=== PATIENT | female | born 1970 | race Caucasian/White ===

== ENCOUNTER 2022-03-07 17:42 | Emergency (ER) | payer OTHER, SELFPAY ==
--- NOTE | ~2022-03-07 | CT_ITS ---
EXAMINATION: CTA chest PE protocol DATE: 03/07/2022 20:50 INDICATION: Right-sided chest pain, elevated D-dimer TECHNIQUE: Computed tomography angiography (CTA) of the chest was performed with 100 mL Omnipaque-350 intravenous contrast timed to evaluate the pulmonary arteries. Coronal maximum intensity projection 3D-reconstructions were created by the technologist. The dose-length product (DLP) was 316.48 mGy-cm. Automated exposure control and iterative reconstruction technique were employed. COMPARISON: X-ray chest, same date. FINDINGS: Study quality: Adequate. Pulmonary arteries: No pulmonary emboli detected. Thoracic aorta: Normal. Lung parenchyma and airways: Minimal bibasilar atelectasis and scarring. Thoracic inlet, axillae and chest wall: Asymmetric soft tissue density in the upper inner quadrant of the left breast measuring 1.6 cm. Mediastinum: Normal. Heart and pericardium: Normal. Coronary artery calcifications: Absent. Pleura: Unremarkable. Upper abdomen: No significant finding. Bones: No acute osseous finding. IMPRESSION: No CT evidence of acute pulmonary embolus. Asymmetric nodular soft tissue density in the upper inner quadrant of the left breast. Recommend outpatient referral for diagnostic mammography and breast ultr asound. Reviewed, dictated and finalized at location K. IMPRESSION: No CT evidence of acute pulmonary embolus. Asymmetric nodular soft tissue densi ty in the upper inner quadrant of the left breast. Recommend outpatient referra l for diagnostic mammography and breast ultrasound.
--- NOTE | ~2022-03-07 | XR_ITS ---
EXAMINATION: XR chest 1V portable Exam Date/Time: 03/07/2022 19:05 CDT HISTORY: sob Comparison: 10/03/2017. RESULT: Lines, tubes, and devices: None. Lungs and pleura: Clear. Cardiomediastinal silhouette: Stable cardiomediastinal silhouette. Other: No acute osseous or upper abdominal finding. IMPRESSION: No acute cardiopulmonary process. Reviewed, dictated and finalized at location K.
[2022-03-07 17:47] VITALS: BP 208/115; PULSE 80; RESP 16; TEMP 36.3; O2SAT 98
--- NOTE | 2022-03-07 17:52 | ECG_ITS ---
Measurements Intervals [place] Rate: 73 P: 59 MT: 158 QRS: 22 QRSD: 98 T: 46 QT: 375 QTc: 415 Interpretive Statements SINUS RHYTHM INCOMPLETE RIGHT BUNDLE BRANCH BLOCK BORDERLINE ECG Electronically Signed On 03-07-2022 20:39:45 CDT by Chintan Jacobson D.O.
[2022-03-07 18:13] LABS: Basophils Absolute Auto 0.1 K/mm3 (0.0-0.1); Basophils Percent Auto 0.8 % (0.2-1.2); Eosinophils Absolute Auto 0.2 K/mm3 (0-0.3); Eosinophils Percent Auto 2.1 % (0-4.4); Hematocrit 46.4 % (37.0-47.0); Immature Granulocyte Absolute 0.04 K/mm3 (0.00-0.031); Immature Granulocyte Percent A 0.4 % (0-0.5); Lymphocytes Absolute Auto 2.49 K/mm3 (0.9-3.2); Lymphocytes Percent Auto 25.4 % (18.3-44.2); Mean Corpuscular HGB Conc 34.5 g/dl (32-36); Mean Corpuscular Hemoglobin 34.6 pg (26-34); Mean Corpuscular Volume 100.2 fl (80-100); Mean Platelet Volume 9.5 fl (7.4-10.4); Monocytes Absolute Auto 0.5 K/mm3 (0.1-0.6); Monocytes Percent Auto 5.2 % (2.6-8.5); Neutrophils Absolute Auto 6.5 K/mm3 (1.3-6.7); Neutrophils Percent Auto 66.1 % (45.5-73.1); Platelet Count Result 363 k/mm3 (150-375); Red Blood Count 4.63 M/mm3 (4.2-5.4); Red Cell Distribution Width 13.7 % (11.5-14.5); White Blood Count 9.8 K/mm3 (4.5-10.0)
[2022-03-07 18:23] LABS: Alanine Aminotransferase 35 U/L (6-35); Albumin Level 4.4 g/dL (3.5-5.1); Alkaline Phosphatase 116 U/L (38-126); Anion Gap 6 mmol/L (8-16); Aspartate Amino Transferase 35 U/L (14-36); Bilirubin,Total 0.3 mg/dL (0.2-1.3); Blood Urea Nitrogen 14 mg/dL (7-17); Calcium 8.9 mg/dL (8.4-10.2); Carbon Dioxide 24 mmol/L (22-30); Chloride 105 mmol/L (98-107); Estimated CRCL calculation 69 ml/min; Estimated Glomerular Filt Rate > 60; Glucose 114 mg/dL (65-110); Potassium 3.7 mmol/L (3.4-5.0); Sodium 135 mmol/L (137-145)
--- NOTE | 2022-03-07 19:12 | ED.GENADULT ---
HPI - General Adult General Chief complaint: Shortness of Breath/Dyspnea Stated complaint: RUQ pain Time Seen by Provider: 03/07/22 18:54 History of Present Illness HPI narrative: 51-year-old female presenting to the emergency department for evaluation of right sided rib pain. Patient states over the course of the last month she has had right-sided rib pain that she describes as right lower rib pain that does radiate up to her right shoulder. Patient states that it is worsened with deep inspiration. While the pain did start approximately 1 month ago she states over the last few days it has become more persistent. Patient reports approximately month ago she did have a viral illness with significant cough but has recovered from that. Patient denies any current chest pain. Patient denies any associated shortness of breath. Patient denies any prior history of gallbladder disease. Patient denies any prior history of ND, PE or DVT. Related Data Home Medications Medication Instructions Recorded Confirmed conjugated estrogens 25 mg 25 mg IM ONCE 09/29/19 solution for injection (Premarin) fluoxetine 20 mg capsule 20 mg PO DAILY 09/29/19 levothyroxine 88 mcg tablet 88 mcg PO DAILY 09/29/19 Allergies Allergy/AdvReac Type Severity Reaction Status Date / Time No Known Allergies Allergy Mild Unverified 07/21/03 13:04 Review of Systems Review of Systems: CONSTITUTIONAL: Denies fever, chills, or sweats. EYES: Denies visual changes, redness, or discharge. ENT: Denies rhinorrhea, congestion, sore throat, or otalgia. CARDIOVASCULAR: See HPI RESPIRATORY: See HPI GASTROINTESTINAL: Denies abdominal pain, nausea, vomiting, or diarrhea. GENITOURINARY: Denies dysuria or hematuria. SKIN: Denies rash or itching. MUSCULOSKELETAL: Denies back pain, joint pain, or myalgia. NEUROLOGIC: Denies headache, numbness, or weakness. [facility] Past Medical History Medical History (Updated 03/07/22 @ 22:20 by Quinn Granger MD) Essential hypertension Thyroid disease Surgical History Surgical History (Updated 09/29/19 @ 09:50 by Bettye Romo CMA) History of History of hysterectomy Family History Family History (Updated 12/24/18 @ 09:12 by DOCTOR UNKNOWN) Father Diabetes mellitus Carcinoma of colon Family history of primary malignant neoplasm of liver Family history of congestive heart failure Mother Family history of renal failure, Onset Age: 45 Other Family history of sleep apnea Social History Social History Smoking status: Former smoker Exam Narrative: APPEARANCE: Well appearing, no pain, no distress, well-nourished. HEAD: normocephalic, atraumatic. EYES: PERRLA/EOMI, conjunctivae clear. NOSE: Normal no drainage THROAT: Pharynx clear, no exudate. NECK: Supple. No adenopathy, no masses. RESPIRATORY: Airway patent, respirations nonlabored. Clear to auscultation bilaterally, no rales, rhonchi, wheezing. CARDIOVASCULAR: Regular rate and rhythm without murmurs rubs or gallops. ABDOMINAL: Soft, nontender, nondistended, normal bowel sounds MUSCULOSKELETAL: Moves all extremities. Strength/ROM intact, No edema, No calf tenderness. Some right lateral chest wall tenderness to palpation. No rashes. NEURO: Alert. Cranial nerves II through XII intact. Good gait. Good coordination SKIN: Warm, dry. Normal Color PSYCHIATRIC: Patient does have a nervous affect. Course Course Emergency Course: Patient stated that she was possibly taking her hydrochlorothiazide and losartan but had not been taking them. Patient was hypertensive in the emergency permit but did feel improved with treatment. Patient had a negative CTA. Patient had negative serial troponins. Patient reports the pain is constant but can be worsened with cough. X-ray rib injury from her previous viral illness and coughing. Low concern for ACS. Patient was encouraged to have close follow-up with her primary care physician. Vital Signs Vit
[2022-03-07] MEDS: hydrALAZINE HCL 20 MG/ML VIAL 10 MG IV PUSH ×2 (19:36→20:33)
[2022-03-07 19:49] LABS: D Dimer 0.55 ug/mL (<0.48)
--- NOTE | 2022-03-07 20:26 | PC.NURSE ---
Manual pressure taken in the Lt Arm 205/120. FELICITY Granger Advised. Med orders continued.
[2022-03-07] MEDS: hydroCHLOROthiazide 12.5 MG CAPSULE PO (20:32)
[2022-03-07] MEDS: LORazepam INJ (*CRX) 2 MG/ML VIAL 1 MG IV PUSH (20:32)
[2022-03-07 20:46] LABS: Troponin I < 0.012 ng/mL (0.000-0.034)
[2022-03-07 21:57] LABS: Troponin I < 0.012 ng/mL (0.000-0.034)
== END 2022-03-08 01:37 | disposition home or self-care (01) ==
PROVIDERS: Emergency Medicine; Emergency Provider Emergency Medicine; PCP Family Medicine
DX: R07.89 Other chest pain (principal); I10 Essential (primary) hypertension; E07.9 Disorder of thyroid, unspecified; Z87.891 Personal history of nicotine dependence
CPT/HCPCS: 36415; 71045; 71275; 80053; 84484; 85025; 85380; 93005; 96374; 96375; 96376; 99284; A9270; J0360; J2060; Q9967

== ENCOUNTER 2022-03-29 08:47 | Outpatient (CLI) | payer OTHER, SELFPAY ==
--- NOTE | ~2022-03-29 | MMUS_ITS ---
EXAMINATION: MM diagnostic shaylee BI w kaila, US breast LT complete HISTORY: Asymmetric nodular soft tissue density reported in upper inner quadrant of left breast on 03/07/2022 CT pulmonary scan TECHNIQUE: Bilateral ML, MLO and CC and left spot ML, MLO and CC 3-D tomosynthesis images were perfor med and synthetic 2-D images were generated. CAD analysis was submitted and interpreted. High resolut ion complete left breast ultrasound including all 4 quadrants and subareolar area was performed. COMPARISON: 03/07/2022 CT pulmonary scan BREAST PARENCHYMAL COMPOSITION: The breasts are heterogeneously dense, which may obscure small masses . FINDINGS: MAMMOGRAPHIC FINDINGS: There is asymmetric fullness in the posterior aspect of the upper inner quadrant of the left breast, which corresponds with the CT finding in similar location. Otherwise no suspicious mass, architectural distortion, malignant calcification, skin thickening or r etraction of either breast is detected. ULTRASOUND: 10:00 7 cm from nipple: There is an oval parallel circumscribed heterogeneous hypoechoic mass which m easures 5 x 12 mm dimension. Minimal vascularity is noted at the margin on color flow imaging. No gilberto picious shadowing is noted. Ultrasound-guided biopsy is recommended. 2:00 3 cm from nipple: Parallel circumscribed 2 x 4 mm opacity with through transmission, which appea rs benign. IMPRESSION: 1. Indeterminate 5 x 12 mm left breast 10:00 mass 7 cm from nipple 2. Ultrasound-guided biopsy of left breast 10:00 lesion is recommended BI-RADS category 4a, suspicious findings. Dr. Wang telephoned the report and ultrasound-guided biopsy recommendation on 03/29/[address] Patricia Ashton. Reviewed, dictated and finalized at location A. IMPRESSION: 1. Indeterminate 5 x 12 mm left breast 10:00 mass 7 cm from nipple 2. Ultrasound-guided biopsy of left breast 10:00 lesion is recommended BI-RADS category 4a, suspicious findings. Dr. Wang telephoned the report and ultrasound-guided biopsy recommendation on at [address] Patricia Ashton.
== END 2022-03-29 08:48 ==
PROVIDERS: PCP Family Medicine; Visit Provider Obstetrics & Gynecology
DX: R92.8 Other abnormal and inconclusive findings on diagnostic imaging of breast (principal)
CPT/HCPCS: 76641; 77062; 77066; G0279

== ENCOUNTER 2023-06-04 08:03 | Emergency (ER) | payer OTHER, SELFPAY ==
--- NOTE | ~2023-06-04 | XR_ITS ---
EXAMINATION: XR knee RT min 4V DATE: 06/04/2023 09:35 INDICATION: Right knee pain. Fall down steps. TECHNIQUE: 4 views of right knee were obtained. COMPARISON: None. FINDINGS: Bone alignment is normal. No fracture. The joint spaces are normal. No knee joint effusion. IMPRESSION: 1. Normal right knee. Reviewed, dictated and finalized at location E. IMPRESSION: 1. Normal right knee.
--- NOTE | ~2023-06-04 | XR_ITS ---
EXAMINATION: XR ankle RT min 3V DATE: 06/04/2023 09:35 INDICATION: Right ankle pain. Fall down steps. TECHNIQUE: 4 views of right ankle were obtained. COMPARISON: None. FINDINGS: Bone alignment is normal. No fracture. There is mild midfoot osteoarthritis. There is ankle soft tissue swelling. IMPRESSION: 1. Mild midfoot osteoarthritis. Reviewed, dictated and finalized at location E.
--- NOTE | ~2023-06-04 | XR_ITS ---
EXAMINATION: XR ankle LT min 3V DATE: 06/04/2023 09:35 INDICATION: Left ankle pain post fall down steps TECHNIQUE: Anteroposterior, oblique, mortise, and lateral views of the left ankle were obtained. COMPARISON: 03/25/2018 FINDINGS: Chronic nonunited nondisplaced avulsion fracture with smooth corticated margins extending across the tip of the lateral malleolus. Alignment remains essentially anatomic. No acute fracture. Mild osteoar thritis at the left ankle joint. No ankle joint effusion. Mild soft tissue swelling about the lateral malleolus. IMPRESSION: 1. Nondisplaced chronic nonunited avulsion fracture at the tip of the lateral malleolus. No acute oss eous abnormality. Reviewed, dictated and finalized at location A. IMPRESSION: 1. Nondisplaced chronic nonunited avulsion fracture at the tip of the lateral m alleolus. No acute osseous abnormality.
--- NOTE | ~2023-06-04 | XR_ITS ---
EXAMINATION: XR knee LT min 4V DATE: 06/04/2023 09:35 INDICATION: Left knee injury. Fall down steps. TECHNIQUE: 4 views of left knee were obtained. COMPARISON: None. FINDINGS: Bone alignment is normal. No fracture. There is mild osteoarthritis of medial compartment c haracterized by a tiny marginal osteophyte. No joint space narrowing. No knee joint effusion. IMPRESSION: 1. Mild left knee osteoarthritis. Reviewed, dictated and finalized at location E.
[2023-06-04 08:25] VITALS: BP 112/78; PULSE 67; RESP 16; TEMP 36.4; O2SAT 96
[2023-06-04] MEDS: IBUPROFEN 600 MG TABLET PO (09:11)
--- NOTE | 2023-06-04 09:26 | ED.LOWEXIN ---
HPI - Extremity Injury (Lower) General Chief Complaint: Extremity Injury, Lower Stated Complaint: fall/ankle and knee pain Time Seen by Provider: 06/04/23 08:23 Source: patient and RN notes reviewed Mode of arrival: ambulatory Limitations: no limitations History of Present Illness HPI Narrative: This is a 53 year old female who presents for evaluation bilateral knee and ankle pain. She states last night she accidental tripped and she fell forward. She hit both of her knees on the ground and she has ankle pain. She reports worse pain at right ankle and right knee. She states she is unable to bear weight without pain . She also reports mild left ankle swelling. She denies LOC. Last tetanus was 2018. Related Data Home Medications Medication Instructions Recorded Confirmed levothyroxine 88 mcg tablet 88 mcg PO DAILY 09/29/19 04/13/23 Allergies Allergy/AdvReac Type Severity Reaction Status Date / Time No Known Allergies Allergy Mild Verified 06/04/23 08:38 Review of Systems Review of Systems: All systems reviewed & are unremarkable except as noted in HPI and below PMFSH Past Medical History Medical History Essential hypertension Thyroid disease Surgical History Surgical History History of History of hysterectomy Family History Family History Father Diabetes mellitus Carcinoma of colon Family history of primary malignant neoplasm of liver Family history of congestive heart failure Mother Family history of renal failure, Onset Age: 45 Other Family history of sleep apnea Social History Social History Smoking status: Former smoker Exam Const: General: no acute distress and alert Nutritional Appearance: well nourished Orientation/consciousness: patient oriented x3 HENMT: Mouth: Yes Normal oral and palatal mucosa present, Yes lip normal and Yes moist mucous membranes Other: superfical midline forehead laceration Eyes: EOM: EOMs intact bilaterally Neck: Neck: normal visual inspection Resp: Effort & Inspection: normal respiratory effort Skin: Other: abrasion to right anterior knee, abrasion just below left knee Neuro: General: patient oriented x3, moves all extremities and CN's II-XI intact bilaterally Extrem: Other: FROM of bilateral lower extremity; right ankle lateral malleolus swelling, TTP, left ankle lateral malleolus TTP, no deformity Psych: Mental Status: mental status grossly normal Affect: normal affect Attitude: cooperative Course Reevaluation(s) Reevaluation #1: I Discussed with patient xray results showing non healing avulsion injury to left anle. She states she remembers that injury from years ago. She declines crutches Date: 06/04/23 Time: 11:27 Vital Signs Vital signs: Vital Signs Temperature 97.6 F 06/04/23 08:25 Pulse Rate 67 06/04/23 08:25 Respiratory Rate 16 06/04/23 08:25 Blood Pressure 112/78 06/04/23 08:25 Pulse Oximetry 96 06/04/23 08:25 Oxygen Delivery Room Air 06/04/23 08:25 Temperature 97.6 F 06/04/23 08:25 Pulse Rate 67 06/04/23 08:25 Respiratory Rate 16 06/04/23 08:25 Blood Pressure 112/78 06/04/23 08:25 Pulse Oximetry 96 06/04/23 08:25 Oxygen Delivery Room Air 06/04/23 08:25 MDM - Extremity Injury (Lower) MDM Narrative Medical decision making narrative: xray ordered to bilateral knee and bilateral ankle. ibuprofen 600 mg PO ordered for pain Differential Diagnosis Differential diagnosis: Likely ankle sprain and strain, ankle fracture and other (knee abrasion) Imaging Data Radiologist's impression: ITS Impressions Knee X-Ray 06/04/23 09:35 IMPRESSION: 1. Normal right knee. Ankle X-Ray 06/04/23 09:40 IMPRESSION: 1. Nondispla
== END 2023-06-04 11:49 | disposition home or self-care (01) ==
PROVIDERS: Emergency Provider General Practice; PCP Family Medicine
DX: S93.401A Sprain of unspecified ligament of right ankle, initial encounter (principal); S80.02XA Contusion of left knee, initial encounter; S80.01XA Contusion of right knee, initial encounter; M84.472K Pathological fracture, left ankle, subsequent encounter for fracture with nonunion; I10 Essential (primary) hypertension; W01.0XXA Fall on same level from slipping, tripping and stumbling without subsequent striking against object, initial encounter
CPT/HCPCS: 73564; 73610; 99284; A9270

== ENCOUNTER 2023-10-23 16:10 | Emergency (ER) | payer OTHER, SELFPAY ==
[2023-10-23 16:19] VITALS: BP 186/116; PULSE 87; RESP 18; TEMP 36.7; O2SAT 99
--- NOTE | 2023-10-23 16:22 | ED.GENADULT ---
HPI - General Adult General Chief complaint: Upper Respiratory Infection Stated complaint: Sinus Infection Source: patient, RN notes reviewed and old records reviewed Mode of arrival: ambulatory Limitations: no limitations History of Present Illness HPI narrative: [age] female presents to [facility] with complaints of sinus congestion, sinus drainage, sinus pressure, cough, postnasal drip , bilateral ear pressure that started for a week ago. Patient taking [id number]-[id number] medications with no relief. Related Data Home Medications Medication Instructions Recorded Confirmed levothyroxine 88 mcg tablet 88 mcg PO DAILY 09/29/19 10/23/23 omeprazole 10 mg capsule,delayed 10 mg PO DAILY 10/23/23 10/23/23 release Allergies Allergy/AdvReac Type Severity Reaction Status Date / Time No Known Allergies Allergy Mild Verified 10/23/23 16:30 Review of Systems Constitutional: Constitutional: Reports no additional constitutional complaints, Denies body ache(s), Denies chills, Denies fatigue, Denies fever(s) and Denies headache(s) Eyes: Eyes: Reports no additional eye complaints and Denies blurry vision ENT: Reports system reviewed and no additional complaints, except as documented, Denies vertigo, Denies dizziness, Denies ear discharge, Reports otalgia, Denies facial pain, Denies headache(s), Reports nasal congestion, Reports nasal discharge, Reports post nasal drip, Reports sinus pain, Reports sinus pressure and Denies sore throat Cardiovascular: Cardiovascular: Reports no additional cardiovascular complaints, Denies chest pain, Denies chest pain at rest, Denies rapid heart rate and Denies dyspnea Respiratory: Respiratory: Reports no additional respiratory complaints, Reports chest congestion, Reports cough, Denies pain on inspiration, Denies pain with cough and Denies dyspnea Gastrointestinal: Gastrointestinal: Denies abdominal pain, Denies diarrhea, Denies nausea and Denies vomiting Integumentary/Breasts: Skin/Breast: Denies rash Neurologic: Reports system reviewed and no additional complaints, except as documented, Denies vertigo, Denies dizziness and Denies headache(s) Endocrine: Endocrine: Denies fatigue PMFSH Past Medical History Medical History Essential hypertension Thyroid disease Surgical History Surgical History History of History of hysterectomy Family History Family History Father Diabetes mellitus Carcinoma of colon Family history of primary malignant neoplasm of liver Family history of congestive heart failure Mother Family history of renal failure, Onset Age: 45 Other Family history of sleep apnea Social History Social History Smoking status: Former smoker Comments At the time of my signature, I reviewed and agree with the nursing past medical, surgical, social, and family history. There is no relevant family history pertinent to the patient complaint. Exam Const: General: cooperative, healthy appearing, no acute distress and well nourished Nutritional Appearance: well nourished Orientation/consciousness: patient oriented x3 Limitations: no limitations HENMT: Head: normal to inspection and normocephalic Ears: external ears normal, TM's normal bilaterally, EAC's normal and mastoids normal Face/Nose/Sinus: Abnormal mucous membranes and turbinates present erythematous, normal facial exam and sinus tenderness Face and sinus: normal facial exam Mouth: Yes Normal oral and palatal mucosa present, Yes oropharynx normal and Yes moist mucous membranes Throat: tonsils normal, uvula midline, posterior oropharynx abnormal erythema and no uvular edema Eyes: General: appearance normal, both eyes and all related structures Sclera: sclerae normal Pupils: Equal
[2023-10-23 16:23] VITALS: BP 179/118
[2023-10-23 16:34] VITALS: BP 188/108
--- NOTE | 2023-10-23 16:34 | PC.NURSE ---
3rd bp was taken by BRYANNA Du
== END 2023-10-23 16:50 | disposition home or self-care (01) ==
PROVIDERS: Emergency Provider Registered Nurse; PCP Family Medicine
DX: J01.90 Acute sinusitis, unspecified (principal); Z87.891 Personal history of nicotine dependence; I10 Essential (primary) hypertension; E07.9 Disorder of thyroid, unspecified
CPT/HCPCS: 99213; G0463

== ENCOUNTER 2024-06-19 10:27 | Emergency (ER) | payer OTHER, SELFPAY ==
--- NOTE | ~2024-06-19 | XR_ITS ---
EXAMINATION: XR chest 2V 06/19/2024 11:13 INDICATION: Cough, fever and fatigue PROCEDURE: 2 view chest COMPARISON: 03/07/2022 FINDINGS: The lungs are clear. The cardiomediastinal silhouette is within normal limits. There are no pleural effusions. There is no pneumothorax suspected. There are prominent cardiophrenic angle f at pads. IMPRESSION: 1: NO ACUTE CARDIOPULMONARY DISEASE. Reviewed, dictated and finalized at location B.
[2024-06-19 10:47] VITALS: BP 150/93; PULSE 69; RESP 16; TEMP 36.9; O2SAT 100
--- NOTE | 2024-06-19 10:59 | ED.URI ---
HPI - URI/Sore Throat General Chief Complaint: Upper Respiratory Infection Stated Complaint: Sinus Infection Symptoms Source: patient and RN notes reviewed Mode of arrival: ambulatory Limitations: no limitations History of Present Illness HPI Narrative: 54 y/o female presented for c/o nasal congestion and drainage, cough, and fever. Onset 2 days. Reports temp up to 102 yesterday. Took Excedrin, dayquil, nyquil, neti pot, and nasal spray. Tested negative for covid at home. Denies chest pain, palpitations, sob, wheezing, n/v/d. MD elicited complaint: cough Related Data Home Medications Medication Instructions Recorded Confirmed omeprazole 10 mg capsule,delayed 10 mg PO DAILY 10/23/23 06/19/24 release Allergies Allergy/AdvReac Type Severity Reaction Status Date / Time No Known Allergies Allergy Mild Verified 06/19/24 10:44 Review of Systems Review of Systems: CONSTITUTIONAL: Endorses malaise, fever EYES: Denies visual changes, redness, or discharge ENT: Reports rhinorrhea, congestion, sinus pain, otalgia, sore throat CARDIOVASCULAR: Denies chest pain, palpitations, edema RESPIRATORY: Reports cough, post nasal drainage. Denies dyspnea GASTROINTESTINAL: Denies abdominal pain, nausea, vomiting, diarrhea SKIN: Denies rash or itching MUSCULOSKELETAL: Endorses myalgia PMFSH Past Medical History Medical History Essential hypertension Thyroid disease Surgical History Surgical History History of History of hysterectomy Family History Family History Father Diabetes mellitus Carcinoma of colon Family history of primary malignant neoplasm of liver Family history of congestive heart failure Mother Family history of renal failure, Onset Age: 45 Other Family history of sleep apnea Social History Social History Smoking status: Former smoker Exam Narrative: GENERAL:mildly Ill-appearing, nontoxic EYES: PERRLA, conjunctivae clear ENT: Mucous membranes moist. TMs pearly chung with dull light reflex bilaterally; no tragal tenderness. Oropharynx not erythematous without lesions or exudate, no drooling, no hoarseness, no trismus, uvula midline. No tripod positioning, muffled voice, soft palate or pharyngeal wall bulging NECK: Supple. No lymphadenopathy CHEST: Clear to auscultation, breath sounds equal. No wheezing, rhonchi, rales, or stridor. No respiratory distress, speaks in full sentences. HEART: Regular rate and rhythm. No murmur heard. SKIN: Warm, dry, no rash. NEURO: Alert and oriented x3. PSYCH: Normal mood and affect Course Course Emergency Course: Patient is aware of diagnosis, understands and agrees to treatment plan. Anticipatory guidance given. Patient agrees to follow-up as directed and is aware of reasons to seek care at the emergency department. Portions of this record may have been created with voice recognition software Level of Care: Express Care Visit Vital Signs Vital signs: Vital Signs Temperature 98.4 F 06/19/24 10:47 Pulse Rate 69 06/19/24 10:47 Respiratory Rate 16 06/19/24 10:47 Blood Pressure 150/93 H 06/19/24 10:47 Pulse Oximetry 100 06/19/24 10:47 Temperature 98.4 F 06/19/24 10:47 Pulse Rate 69 06/19/24 10:47 Respiratory Rate 16 06/19/24 10:47 Blood Pressure 150/93 H 06/19/24 10:47 Pulse Oximetry 100 06/19/24 10:47 reviewed MDM - URI/Sore Throat MDM Narrative Medical decision making narrative: Discussed physical exam findings and CXR. Consistent viral URI. Advised supportive measures and signs/symptoms to go to the ER. Pt is appropriate for outpt treatment and f/u. Differential Diagnosis Differential diagnosis: Likely upper respiratory infection, sinusitis and viral infection Discharge
== END 2024-06-19 11:45 | disposition home or self-care (01) ==
PROVIDERS: Emergency Provider Nurse Practitioner Family; PCP Family Medicine
DX: J06.9 Acute upper respiratory infection, unspecified (principal); Z87.891 Personal history of nicotine dependence; I10 Essential (primary) hypertension
CPT/HCPCS: 71046; 99213; G0463